=== PATIENT | male | born 1950 | race Asian ===

== ENCOUNTER 2017-02-01 13:53 | Emergency (ER) | payer MEDICARE, OTHER ==
[~2017-02-01] VITALS: Ht 162.6 cm; Wt 65.8 kg
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
[2017-02-01 14:30] VITALS: BP 117/57
--- NOTE | 2017-02-01 15:35 | Diagnostic Imaging Report ---
Indications: Altered mental status, loss of consciousness, dementia Technique: Spiral acquisitions obtained through the brain. Angled axial and coronal 5 x 5 mm slices were reconstructed. Total dose length product 1523 mGycm. CTDI vol(s) 70 mGy. Dose reduction achieved using automated exposure control Comparison: None Findings: There is evidence of prior left frontal craniotomy. 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 There is encephalomalacia of the left inferior periventricular frontal lobe, with resultant ex vacuo dilatation of the frontal horn of the left lateral ventricle. There is also some encephalomalacia of the left temporal tip There is generalized mild age-related enlargement of ventricles and extra axial CSF spaces. No acute intracranial hemorrhage or edema. No mass effect or midline shift. Normal gomez-white differentiation. Otherwise intact calvarium. Visualized orbits and sinuses are unremarkable. Impression: Negative for acute intracranial bleed or mass effect Evidence of prior left sided craniotomy and aneurysm clipping Left frontal and temporal encephalomalacia, quite possibly related to the above Chronic and age-related changes, as described The CT scanner at [facility] is accredited by the [employer] and the scans are performed using protocols designed to limit radiation exposure to as low as reasonably achievable to attain images of sufficient resolution adequate for diagnostic evaluation.
--- NOTE | 2017-02-01 15:48 | Diagnostic Imaging Report ---
Indication: PAIN Technique: Spiral acquisitions obtained through the abdomen and pelvis. No oral contrast utilized, per emergency room physician request No IV contrast utilized, per referring physician request.. Multiplanar reconstructions were generated. Total dose length product 654 mGycm. CTDIvol(s) 11 mGy. Dose reduction achieved using automated exposure control Comparison: None Findings: The appendix is not definitely demonstrated, although may be immediately adjacent to the posterior medial aspect of the cecum. In any case, no findings to suggest acute appendicitis are evident. Prominent lymph nodes are seen in the right lower quadrant. There are a few colonic diverticula. No evidence of diverticulitis. No small bowel distention. No free or loculated intraperitoneal air or fluid is evident. Lack of IV contrast limits assessment of the solid organs. The liver, gallbladder, pancreas are unremarkable. The spleen contains a small calcification. The adrenals are unremarkable. The right kidney demonstrates multiple cysts, largest in the interpolar region measuring 4 cm long axis dimension. In the upper pole of left kidney, there are numerous clustered large cysts, measuring up to 6.3 cm long axis dimension. Some of the cyst west contain calcifications. Numerous cysts are seen elsewhere throughout the periphery of the left kidney, as well. No renal or ureteral calculi, hydronephrosis, or hydroureter demonstrated. No pelvic mass or adenopathy. No retroperitoneal or mesenteric mass or adenopathy. The included lung bases demonstrate some posterior dependent atelectatic changes, are otherwise clear There is a mild anterior wedge deformity of the L1 vertebral body. There is minimal lower lumbar facet disease. Some dystrophic calcifications are seen anterolateral to the upper acetabulum on the right. The bones are otherwise unremarkable. Impression: No definite acute abnormality Nonspecific slightly prominent right lower quadrant lymph nodes Colonic diverticulosis. No evidence of diverticulitis Clustered large left upper pole renal cysts. Some with mural calcifications. These are probably all Bosniak type II benign lesions, but contrast CT or ultrasound should be considered to ensure benign appearance. There are also other renal cysts bilaterally L1 vertebral body wedge deformity. This could be physiologic, or could represent a mild compression fracture of indeterminate age. Consider MRI for better characterization if this is clinically relevant Other findings as noted, including mild lower lumbar facet disease, splenic probable granulomatous calcification The CT scanner at [facility] is accredited by the [employer] and the scans are performed using protocols designed to limit radiation exposure to as low as reasonably achievable to attain images of sufficient resolution adequate for diagnostic evaluation.
[2017-02-01 16:27] VITALS: BP 118/65
[2017-02-01 18:25] VITALS: BP 118/65
--- NOTE | 2017-02-02 14:27 | Cardiology Report ---
APPROVED REPORT EKG Measurement Heart [id number] Normal sinus rhythm with sinus arrhythmia Normal ECG
== END 2017-02-01 16:27 | disposition left against medical advice (07) ==
LOC: EDBD 13:53 → EMR 15:00
DX: R41.82 Altered mental status, unspecified (principal); I95.9 Hypotension, unspecified; K57.30 Diverticulosis of large intestine without perforation or abscess without bleeding; N28.1 Cyst of kidney, acquired
CPT/HCPCS: 70450; 74176; 93005; 99285